=== PATIENT | female | born 1975 | race Hispanic/Latino ===

== ENCOUNTER → 2018-05-07 | Outpatient (CLI) | payer OTHER | LOC: MAMMO 09:37 | PROVIDERS: ATTEND Internal Medicine | DX: Z12.31 Encounter for screening mammogram for malignant neoplasm of breast (principal) | CPT/HCPCS: 77067 ==

== ENCOUNTER → 2018-05-22 | Outpatient (CLI) | payer OTHER ==
--- NOTE | 2018-05-22 15:13 | Diagnostic Imaging Report ---
#[id number] - [id number] #UNILATERAL LEFT DIGITAL DIAGNOSTIC MAMMOGRAM WITH SPOT COMPRESSION AND MAGNIFICATION: 05/22/2018 Comparison is made to exam dated: 05/07/2018 mammogram - [facility]. There are scattered fibroglandular elements in the left breast. Magnification spot images of the left breast at 1 o'clock reveal an area of calcification with an overall non suspicous appearance. Since this is the first mammogram, an interim followup mammogram in 6 months is recommended to ascertain stability. IMPRESSION: PROBABLY BENIGN A follow-up mammogram in 6 months is recommended to demonstrate stability. The patient was notified of these findings and the need for followup mammogram. Ren Guevara Jr., D.O. cw/:05/22/2018 14:37:34 Operating Cost Clerk: Maribell FERNANDEZ(R)(M), [facility] letter sent: Followup Recommended Mammogram BI-RADS: 3 Probably benign
== END ==
LOC: MAMMO 12:58
PROVIDERS: ATTEND Internal Medicine
DX: N64.59 Other signs and symptoms in breast (principal)

== ENCOUNTER → 2018-06-19 | Outpatient (CLI) | payer OTHER ==
--- NOTE | 2018-06-19 13:09 | Diagnostic Imaging Report ---
EXAM: Complete Abdominal Ultrasound INDICATION: ABDOMEN PAIN. COMPARISON: None. TECHNIQUE: Transverse and longitudinal images of the upper abdomen were obtained. FINDINGS: Liver: Size: 12.2 cm in the right midclavicular line, normal Appearance: Mildly heterogeneous echogenicity, smooth contour Mass: No focal masses Spleen: Size: 9.5 cm in length, normal Echogenicity: Normal Mass: No focal masses Gallbladder: Stones/Sludge: None Wall: 0.2 cm Appearance: No wall thickening, pericholecystic fluid or hydrops. Sonographic Bravo's Sign: Negative Bile Ducts: Intrahepatic Ducts: No dilatation Extrahepatic Ducts: Common bile duct measures 0.3 cm, no dilatation Pancreas: Visualized portions of the pancreatic head, neck and proximal body are normal. Kidneys: Length: Right 9.9 cm Left 9.0 cm Echogenicity: Normal Collecting System: No hydronephrosis Stone: None Cyst/Mass: None Vessels: Aorta: Visualized portions are normal Inferior Vena Cava: Visualized portions are normal Main Portal Vein: 0.6 cm, with unusual appearance. The flow appears hepatopetal however, Doppler tracing was not obtained. There are periportal collaterals. Free Fluid: No ascites or pleural effusion IMPRESSION: 1. Periportal collaterals, and absence of a normal-appearing main portal vein is concerning for cavernous transformation (past history of portal vein thrombosis provided by the patient). This could be further characterized with CT examination of the abdomen with contrast. Otherwise no acute abnormality. Signed by: Dr. Jessica He M.D. on 06/19/2018 1:06 PM
== END ==
LOC: US 09:46
PROVIDERS: ATTEND Internal Medicine
DX: R10.9 Unspecified abdominal pain (principal); N92.1 Excessive and frequent menstruation with irregular cycle; N95.1 Menopausal and female climacteric states
CPT/HCPCS: 76700

== ENCOUNTER 2020-07-16 10:15 | Observation (INO) | payer BC, OTHER ==
[2020-07-12 15:06] LABS: BASOPHILS # (AUTO) 0.1 (0.0-0.1); BASOPHILS % 1.1 % (0.0-1.0); EOSINOPHILS # (AUTO) 0.1 (0.0-0.4); EOSINOPHILS % 1.5 % (0.0-6.0); HEMATOCRIT 40.3 % (34.2-44.1); HEMOGLOBIN 12.9 g/dL (12.0-16.0); LYMPHOCYTES # (AUTO) 1.5 (1.0-3.2); MEAN CORPUSCULAR HEMOGLOBIN 27.1 pg (28-32); MEAN CORPUSCULAR VOLUME 84.7 fL (81-99); MONOCYTES # (AUTO) 0.4 (0.2-0.8); MONOCYTES % 9.2 % (4.4-11.3); NEUTROPHILS # (AUTO) 2.5 (2.1-6.9); NEUTROPHILS % 54.8 % (38.7-80.0); PLATELET COUNT 156 x10e3/uL (140-360); RED BLOOD COUNT 4.76 x10e6/uL (3.6-5.1); RED CELL DISTRIBUTION WIDTH 15.3 % (11.7-14.4)
[2020-07-12 15:23] LABS: INR 1.13; PROTHROMBIN TIME 15.1 seconds (11.9-14.5)
[2020-07-12 15:26] LABS: BILIRUBIN,URINE NEGATIVE (NEGATIVE); CLARITY,URINE CLEAR (CLEAR); COLOR,URINE YELLOW (YELLOW); KETONES,URINE NEGATIVE (NEGATIVE); LEUKOCYTE ESTERASE ,URINE NEGATIVE (NEGATIVE); NITRITE,URINE NEGATIVE (NEGATIVE); PROTEIN,URINE DIPSTICK NEGATIVE (NEGATIVE); URINE UROBILINOGEN 0.2 mg/dL (0.2 - 1)
--- NOTE | 2020-07-12 16:38 | Diagnostic Imaging Report ---
X-ray chest PA and lateral History: Preop Comparison: None Findings: Central airways unremarkable. Heart size normal. Atherosclerotic aorta. No pleural effusion. No pneumothorax. No focal lung disease. Visualized skeleton unremarkable. Upper abdomen unremarkable. Impression: No significant cardiopulmonary disease on this exam. Signed by: Price Feliz MD on 07/12/2020 4:35 PM
[~2020-07-16] VITALS: Ht 144.8 cm; Wt 65.3 kg
[~2020-07-16 10:15] MED LIST: LEVOTHYROXINE50 MCG PO; VITAMIN D PO; XARELTO20 MG PO
[2020-07-16 11:47] LABS: INR 0.95; PROTHROMBIN TIME 13.2 seconds (11.9-14.5)
[2020-07-16 11:48] LABS: PARTIAL THROMBOPLASTIN TIME 28.1 seconds (23.8-35.5)
[2020-07-16] MEDS ORDERED: BUPIVACAINE 0.25%/EPI 30ML SDV INJ ONE (12:39)
[2020-07-16] MEDS ORDERED: FENTANYL CITRATE/PF 100MCG/2 ML INJ ONE (15:22)
[2020-07-16] MEDS ORDERED: MIDAZOLAM HCL 2 MG/2 ML VIAL ONE (15:22)
[2020-07-16] MEDS ORDERED: HYDROMORPHONE 2MG/ML 2 MG/ML ML ONE (16:16)
[2020-07-16] MEDS ORDERED: DIPHENHYDRAMINE HCL 25 MG CAP PO PRN (16:30)
[2020-07-16] MEDS ORDERED: ACETAMINOPHEN 325 MG TAB PO PRN (16:30)
[2020-07-16] MEDS ORDERED: IBUPROFEN 200 MG TAB PO PRN (16:30)
[2020-07-16] MEDS: D5.45%NS/KCL 20MEQ 1,000 ML IV SCH (16:30)
[2020-07-16] MEDS ORDERED: BISACODYL 10 MG SUPP PR PRN (16:30)
[2020-07-16] MEDS ORDERED: SIMETHICONE 80 MG CHEW PO PRN (16:30)
[2020-07-16] MEDS ORDERED: HYDROMORPHONE 1MG/1ML INJ IV PRN (16:30)
[2020-07-16] MEDS ORDERED: DOCUSATE SODIUM 100 MG CAP PO PRN (16:30)
[2020-07-16] MEDS ORDERED: ACETAMINOPHEN/CODEINE 300MG - 30MG TAB PO PRN (17:15)
[2020-07-16 17:29] VITALS: BP 108/61
--- NOTE | 2020-07-16 17:35 | NUR ---
Here from the PACU, very sleepy, unable to complete assessment at this time. VSS In no apparent distress. Able to answer simple questions and move all extremities and opens eyes on command but falls back to sleep quickly. Matthew to bedside. IVF infusing O2 2L NC on ABD soft with 3 sites that have dressing that is cdi
[2020-07-16] MEDS ORDERED: IBUPROFEN 400 MG TAB PO PRN (17:45)
[2020-07-16 18:02] VITALS: BP 117/77
[2020-07-16 18:09] VITALS: BP 117/77
[2020-07-16 18:20] VITALS: BP 117/77
--- NOTE | 2020-07-16 19:00 | NUR ---
Resumed care of patient. Patient awake and resting in bed, respirations even and unlabored on room air, no s/s of distress at this time. Matthew patent and draining clear yellow urine to gravity, bag hung below bladder. Bed locked and in lowest position, side rails upx3, call light placed within reach. All safety measures in place.
[2020-07-16] MEDS: ONDANSETRON HCL INJ 2MG/ML 2ML 2 MG/ML VIAL IV PRN (19:55)
[2020-07-16 20:00] VITALS: BP 108/70
[2020-07-16] MEDS: CEFAZOLIN SOD 2 GM/D5W 50ML 50 ML IV SCH (21:25)
[2020-07-16 21:26] VITALS: BP 108/70
[2020-07-16] MEDS ORDERED: DEXAMETHASONE SOD PHOS INJ 4 MG/ML VIAL ONE (21:31)
[2020-07-16] MEDS ORDERED: SEVOFLURANE INHAL SOLN 250 ML PEN BTL ONE (21:31)
[2020-07-16] MEDS ORDERED: ONDANSETRON HCL INJ 2MG/ML 2ML 2 MG/ML VIAL ONE (21:31)
[2020-07-16] MEDS ORDERED: PROPOFOL IV EMULSION 10 MG/ML 20 ML VIAL ONE (21:31)
[2020-07-16] MEDS ORDERED: LIDOCAINE HCL 2% LOCAL INJ 5 ML SDV VIAL INJ ONE (21:31)
[2020-07-16] MEDS ORDERED: EPHEDRINE SULFATE INJ 50 MG/ML VIAL ONE (21:31)
[2020-07-16] MEDS ORDERED: ROCURONIUM BROMIDE 10 MG/ML 5ML VIAL IV ONE (21:31)
--- NOTE | 2020-07-16 21:31 | Operative Report ---
DATE OF PROCEDURE: 07/16/2020 SURGEON: Renard Sahu MD PREOPERATIVE DIAGNOSES: 1. Menorrhagia. 2. Anemia. 3. Fibroid uterus. 4. History of portal vein thrombosis. POSTOPERATIVE DIAGNOSES: 1. Menorrhagia. 2. Anemia. 3. Fibroid uterus. 4. History of portal vein thrombosis. 5. Massive adhesions. TITLE OF PROCEDURES: 1. Total laparoscopic hysterectomy. 2. Bilateral salpingectomy. 3. Lysis of adhesions. STONE RUBBER: Cedrick Kendall MD. ANESTHESIA: General with [place], and Baron anesthesia assistants. INDICATIONS FOR OPERATION: The patient is a 44-year-old, 2, para 2 with 2 previous C-sections, presents with an 18-week size uterus. Her last menstrual period was February 03, 2020, and the 18-week size uterus seems to have caused portal vein thrombosis by its direct pressure. She has been on Xarelto since that was diagnosed. She was given Lupron to shrink the uterus and the uterus has shrank down to an 80 mL volume, approximately 12-week size. She is therefore here for total laparoscopic hysterectomy, bilateral salpingectomy secondary to large fibroid uterus causing portal vein thrombosis. She also has menorrhagia and anemia with her hemoglobin being as low as 7.8. However, after the Lupron, her hemoglobin was up to 12.9. So, she is therefore taken to the operating room at this time. FINDINGS AT SURGERY: There were massive adhesions of omentum to the anterior abdominal wall. These were lysed to free up the uterus. They were lysed very carefully and once the adhesions were lysed away, it was a 12-14 week size uterus. Tubes were status post tubal ligation and were excised with the uterus. The ovaries were within normal limits. Most of the adhesions were from the anterior abdominal wall to the superior surface of the uterus and the anterior surface of the uterus down to the bladder reflection. Cystoscopy at the end of the procedure showed no damage to the bladder and the ureteral jets were seen bilaterally. DESCRIPTION OF PROCEDURE: The patient was taken to the operating room, placed on the table in supine position. General anesthesia was administered. The patient was placed in the lithotomy position. The perineum was prepared and draped in usual sterile manner. Pelvic exam revealed a 12-14 week size anteverted mobile uterus with no adnexal masses. A Matthew catheter was placed in the bladder for constant drainage. A weighted speculum was placed in the posterior vaginal wall with the aid of the right angle retractor. The anterior lip of the cervix was grasped with single-tooth tenaculum. Then, the VCare uterine manipulator was placed using a medium size and the balloon was activated. The uterus was very mobile once it was placed, and then, at this point, the briquette machine operator helper changed gloves and we proceeded with laparoscopy. A small incision was made just inferior to the umbilicus in the midline. The Veress needle was inserted through this incision into the peritoneal cavity under direct visualization by laparoscopy. The pneumoperitoneum was then created by insufflation of 4 L of carbon dioxide gas and a filling pressure of 8-10 mmHg. Then, the laparoscope was placed after the trocar was removed, and the findings were that we were in the peritoneal cavity. At this point, the findings were massive adhesions of omentum to anterior abdominal wall and of the omentum to the uterus superiorly and to the anterior portion of the uterus as well, consistent with scar tissue from . A second trocar was placed in the right lower quadrant under direct visualization by laparoscopy and a third trocar was placed in the left lower quadrant under direct visualization by laparoscopy. At this point, we proceeded with lysis of adhesions. Using care, the LigaSure instrument was used to lyse the adhesions by ensuring there was no bowel underneath the omentum, cutting the omentum as close to the anterior abdominal wall as possible. These were lysed away, taking about 15 minutes and then the adhesions of the anterior abdominal wall to the anterior surface of the uterus were then lysed carefully, staying as close to the uterus as possible, and then we did not go all the way down to ensure avoiding bladder injury. At this point, the mesosalpinx on each side was grasped with a LigaSure instrument, clamping, coagulating, and cutting, and freeing the tube, which was status post tubal ligation away from the ovary and including it within the uterine specimen. We then took a second bite on the mesosalpinx, clamping, coagulating, and cutting, and then the utero-ovarian ligaments on each side were clamped close to the uterus, coagulated and cut. At this point, the round ligament on each side was coagulated and cut, and then we proceeded to dissect further anteriorly being careful to stay away from the bladder and bringing the bladder flap down. Using gentle pushing from the manipulator in the vagina, we were able to dissect the uterus away from the bladder. At this point, the uterine vessels on each side were clamped, coagulated, and cut, and then on each side, the uterosacral ligament was clamped, coagulated, and cut until the cup was visualized. We brought the bladder down further anteriorly. At this point, cutting against the uterus until we reached the cervix. At this point, we were able to open posteriorly and visualize the VCare cup and proceeded using the L hook to coagulate and an open and cut the vaginal cuff, and then after carefully dissecting away all intervening structures anteriorly, we were able to use the L hook to cauterize around the VCare cup anteriorly until the uterus was completely from all its attachments. There was a small amount of the cervix that was left behind anteriorly to avoid any injury to the bladder. Once this was free, the uterus was easily brought out through the vagina with its attachment and then at this point, a glove was put into the vagina to block the loss of pneumoperitoneum and then we proceeded to close the vaginal cuff using Endo Stitches. Four stitches were required and they were placed first on the angles and then along the vaginal cuff. Four knots were tied with each in the stitch, again with four sutures used and there was good hemostasis in evidence after the Endo Stitch was placed. At this point, we irrigated and suctioned, found no further evidence of bleeding and at this point, Dr. Kendall proceeded with cystoscopy. First before the cysto, he filled the bladder with fluid and we observed and found no evidence of leakage, while watching through the scope abdominally and then we proceeded with a cystoscopy, visualizing the ureteral jets and also inspecting the entire surface of the bladder and finding no evidence of injury. At this point, the cystoscopy was terminated and all the fluid was removed from the bladder, and a new Matthew catheter was placed in. Then, we proceeded to remove the air and instruments from the abdomen. All the air was removed and then the skin incisions were closed with inverted stitches of 4-0 Monocryl suture, thus completing the procedure. There were no complications noted. Estimated blood loss was 100 mL. The patient tolerated the procedure well, was transferred from the operating room to the recovery room in stable condition. Dr. Kendall assisted with retraction, hemostasis, visualization, suturing, irrigation and suctioning. MD MINESH Bae/CHEVY /[id number]
[2020-07-16] MEDS ORDERED: CEFAZOLIN SOD 1 GM VIAL IV SCH (22:00)
[2020-07-17] VITALS: BP 105/72
[2020-07-17 04:00] VITALS: BP 104/67
[2020-07-17] MEDS ORDERED: ENOXAPARIN SOD INJ 40 MG/0.4 ML SYR SC SCH (04:00)
[2020-07-17] MEDS ORDERED: ENOXAPARIN 30 MG/0.3 ML SYR SC ONE (04:00)
[2020-07-17 06:00] LABS: BASOPHILS % 0.2 % (0.0-1.0); HEMATOCRIT 35.8 % (34.2-44.1); HEMOGLOBIN 11.4 g/dL (12.0-16.0); LYMPHOCYTES # (AUTO) 0.8 (1.0-3.2); LYMPHOCYTES % 9.9 % (18.0-39.1); MEAN CORPUSCULAR HEMOGLOBIN 27.1 pg (28-32); MEAN CORPUSCULAR HGB CONC 31.8 g/dL (31-35); MONOCYTES # (AUTO) 0.5 (0.2-0.8); MONOCYTES % 5.8 % (4.4-11.3); NEUTROPHILS # (AUTO) 6.8 (2.1-6.9); NEUTROPHILS % 83.9 % (38.7-80.0); PLATELET COUNT 132 x10e3/uL (140-360); RED BLOOD COUNT 4.21 x10e6/uL (3.6-5.1); RED CELL DISTRIBUTION WIDTH 15.1 % (11.7-14.4)
[2020-07-17] MEDS ORDERED: LEVOTHYROXINE SODIUM 25 MCG TABLET PO SCH (06:00)
[2020-07-17 06:29] LABS: ANION GAP 15.7 mmol/L (8-16); BLOOD UREA NITROGEN 5 mg/dL (7-26); BUN/CREATININE RATIO 8 (6-25); CALCIUM 8.7 mg/dL (8.4-10.2); CARBON DIOXIDE 20 mmol/L (22-29); CHLORIDE 103 mmol/L (98-107); CREATININE, SERUM 0.61 mg/dL (0.57-1.11); EST GLOMERULAR FILTRATION RATE > 60 ML/MIN (60-); GLUCOSE 109 mg/dL (74-118); POTASSIUM 4.7 mmol/L (3.5-5.1); SODIUM 134 mmol/L (136-145)
[2020-07-17] MEDS: CEFAZOLIN SOD 2 GM/D5W 50ML 50 ML IV SCH (06:38)
[2020-07-17] MEDS: ONDANSETRON HCL INJ 2MG/ML 2ML 2 MG/ML VIAL IV PRN (06:42)
--- NOTE | 2020-07-17 06:44 | NUR ---
DC'd Matthew with catheter tip intact. Patient ambulated to toilet and voided 100 ml pink-tinged urine. Instructed to notify nurse if experiencing difficulty voiding, verbalized understanding.
[2020-07-17] MEDS: D5.45%NS/KCL 20MEQ 1,000 ML IV SCH ×2 (06:46→09:08)
[2020-07-17 08:15] VITALS: BP 123/81
[2020-07-17 08:17] VITALS: BP 123/81
[2020-07-17] MEDS: RIVAROXABAN 20 MG TABLET PO SCH ×2 (09:00→09:08)
[2020-07-17] MEDS ORDERED: LEVOTHYROXINE SODIUM 50 MCG TAB PO SCH (09:00)
[2020-07-17 11:47] VITALS: BP 106/62
[2020-07-17 12:16] VITALS: BP 106/62
[2020-07-17] MEDS ORDERED: RIVAROXABAN 20 MG TABLET PO SCH (13:00)
[2020-07-17] MEDS ORDERED: TYLENOL WITH C1 EACH PO (13:59)
== END 2020-07-17 14:23 | disposition home or self-care (01) ==
LOC: OR 10:15 → PACU V 15:42 → MED/SURG 17:19
PROVIDERS: ADMIT Obstetrics & Gynecology; ATTEND Obstetrics & Gynecology
DX: D25.9 Leiomyoma of uterus, unspecified (principal); N92.0 Excessive and frequent menstruation with regular cycle; D64.9 Anemia, unspecified; N73.6 Female pelvic peritoneal adhesions (postinfective); Z11.59 Encounter for screening for other viral diseases; Z01.812 Encounter for preprocedural laboratory examination
CPT/HCPCS: 36415 ×3; 49329; 58571; 71046; 80048; 81003; 84702; 85025 ×2; 85610 ×2; 85730 ×2; 86850; 86900; 88307; 93005; G0378 ×2; J0690; J1100; J1170 ×2; J2001; J2405; J2704; U0002

== ENCOUNTER → 2021-08-05 | Outpatient (CLI) | payer BC ==
[~2021-08-05] MED LIST changes: +TYLENOL WITH C1 EACH PO
== END ==
LOC: MAMMO 10:13
PROVIDERS: ATTEND Internal Medicine
DX: Z12.31 Encounter for screening mammogram for malignant neoplasm of breast (principal)
CPT/HCPCS: 77067

== ENCOUNTER → 2021-08-05 | Outpatient (CLI) | payer BC | LOC: US 10:17 | PROVIDERS: ATTEND Internal Medicine Hematology & Oncology | DX: I81 Portal vein thrombosis (principal) | CPT/HCPCS: 76705 ==

== ENCOUNTER 2024-09-30 19:11 | Emergency (ER) | payer BC, OTHER ==
[~2024-09-30] VITALS: Ht 149.9 cm; Wt 70.3 kg
[2024-09-30 19:37] VITALS: TEMP 99.1
[2024-09-30 20:20] LABS: BASOPHILS # (AUTO) 0.1 (0.0-0.1); BASOPHILS % 1.3 % (0.0-1.0); EOSINOPHILS # (AUTO) 0.1 (0.0-0.4); EOSINOPHILS % 1.7 % (0.0-6.0); LYMPHOCYTES # (AUTO) 1.5 (1.0-3.2); LYMPHOCYTES % 27.7 % (18.0-39.1); MEAN CORPUSCULAR HEMOGLOBIN 30.8 pg (28-32); MEAN CORPUSCULAR HGB CONC 33.3 g/dL (31-35); MEAN CORPUSCULAR VOLUME 92.3 fL (81-99); MONOCYTES # (AUTO) 0.7 (0.2-0.8); MONOCYTES % 13.6 % (4.4-11.3); NEUTROPHILS # (AUTO) 2.9 (2.1-6.9); NEUTROPHILS % 55.3 % (38.7-80.0); PLATELET COUNT 136 x10e3/uL (140-360); RED CELL DISTRIBUTION WIDTH 13.1 % (11.7-14.4); WHITE BLOOD COUNT 5.28 x10e3/uL (4.8-10.8)
[2024-09-30 20:32] LABS: ALBUMIN 3.5 g/dL (3.5-5.0); ALBUMIN/GLOBULIN RATIO 1.1 (0.8-2.0); ANION GAP 13.7 mmol/L (8-16); BILIRUBIN,TOTAL 0.3 mg/dL (0.2-1.2); CALCIUM 9.4 mg/dL (8.4-10.2); CREATININE, SERUM 0.76 mg/dL (0.57-1.11); POTASSIUM 3.7 mmol/L (3.5-5.1); TOTAL PROTEIN 6.7 g/dL (6.5-8.1)
[2024-09-30 22:37] VITALS: PULSE 80; RESP 19
[2024-09-30 23:39] VITALS: BP 125/67; PULSE 86; RESP 20; O2SAT 100
== END 2024-09-30 23:42 | disposition home or self-care (01) ==
LOC: ER 19:16
DX: R60.9 Edema, unspecified (principal); F31.9 Bipolar disorder, unspecified; R94.31 Abnormal electrocardiogram [ECG] [EKG]
CPT/HCPCS: 36415; 71045; 76705; 80053; 83880; 84484; 85025; 93005; 93970; 99284